=== PATIENT | male | born 1970 | race Two or more races ===

== ENCOUNTER 2016-08-09 18:59 | Emergency (ER) | payer SELFPAY ==
[~2016-08-09] VITALS: Ht 170.2 cm; Wt 61.2 kg
[2016-08-09 19:04] VITALS: BP 135/73
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
== END 2016-08-09 20:21 | disposition home or self-care (01) ==
LOC: ER 18:59
DX: S39.012A Strain of muscle, fascia and tendon of lower back, initial encounter (principal); V49.49XA Driver injured in collision with other motor vehicles in traffic accident, initial encounter; Y93.89 Activity, other specified; Y99.8 Other external cause status; Y92.481 Parking lot as the place of occurrence of the external cause
CPT/HCPCS: 72110; 99284

== ENCOUNTER 2016-12-09 09:48 | Emergency (ER) | payer OTHER ==
[~2016-12-09] VITALS: Ht 177.8 cm; Wt 81.6 kg
[2016-12-09 10:08] VITALS: BP 120/75
[2016-12-09] MEDS ORDERED: traMADol 50 MG TABLET PO ONE (10:15)
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
[2016-12-09] MEDS ORDERED: NAPR500T8 PO (11:29)
[2016-12-09] MEDS ORDERED: CYCL10TA2 PO (11:29)
== END 2016-12-09 11:35 | disposition home or self-care (01) ==
LOC: ER 09:48
DX: S20.211A Contusion of right front wall of thorax, initial encounter (principal); M25.551 Pain in right hip; V43.52XA Car driver injured in collision with other type car in traffic accident, initial encounter; Y93.I9 Activity, other involving external motion; Y92.410 Unspecified street and highway as the place of occurrence of the external cause; Y99.8 Other external cause status
CPT/HCPCS: 71020; 73502; 99284